=== PATIENT | female | born 1950 | race Caucasian/White ===

== ENCOUNTER → 2017-07-08 | Outpatient (CLI) | payer OTHER ==
[~2017-07-08] VITALS: Ht 162.6 cm; Wt 43.3 kg
[~2017-07-08] MED LIST: ADVAIR 250-501 EACH INH; ANALPRAM HC 128.4 GM RECTAL; B12INJ IM; CLARITIN10 MG PO; DIAZEPAM 5 MG5 M1 PO; DUONEB 2.5-0.5 M3 ML INH; GAVISCON 80-141 EACH PO; HYDROCODON-ACE1 EAC7 PO; KLOR-CON 1010 MEQ PO; LOMOTIL TABLET1 EACH PO; MAGOX 400400 MG PO; MUCINEX600 MG PO; NEURONTIN 400400 M1 PO; NITROGLYCERIN0.4 MG SUBLING; NYSTATIN100000 UNI PO; NYSTATIN15 G3 TOP; OCUVITE EYE +1 EACH PO; OXYBUTYNIN 5 MG5 M2 PO; PILOCARPINE HCL5 M1 PO; PROTONIX40 M1 PO; TOPIRAMATE25 MG PO
--- NOTE | ~2017-07-08 | HC ---
[facility] [place] [address] CONSULTATION Name: EDUIN HOLLIDAY Room #: REG [facility]#: [id number] Admission: 07/08/17 Attend Phys: Srini Crawford Discharge: Date of : 50 Report #: [id number] THIS REPORT FOR: //name// CC: Luke Quispe MD [facility] physician/PCP Srini Hawthorne DATE OF SERVICE: 07/08/2017 PROGRESS NOTE HISTORY OF PRESENT ILLNESS: The patient was recently seen in Infectious Disease consultation at [facility] in the Intensive Care Unit, where she was admitted with acute exacerbation of COPD, influenza A infection and MRSA UTI. She initially was in the Intensive Care Unit on broad-spectrum antibiotics, subsequently transferred to the floor and was discharged to the long term facility, I believe, on 06/28/2017. DRUG ALLERGIES: VANCOMYCIN, ERYTHROMYCIN, PENICILLIN AND MEROPENEM. MEDICATIONS: She is currently on Nystatin 100,000 units per mL, 5 mL t.i.d. by mouth; gabapentin 400 mg 4 times daily; Lomotil 2 tablets 4 times daily for diarrhea if needed; cyanocobalamin 1000 mcg IM monthly; diazepam 5 mg daily if needed; Atrovent and albuterol inhalation treatments 4 times daily; she is on linezolid 600 p.o. b.i.d., to be stopped on 07/13/2017; loratadine 10 mg by mouth daily; Gaviscon 80 mg tablets, 2 tablets 4 times daily if needed; magnesium 200 mg by mouth 2 times daily; sublingual nitroglycerin p.r.n. chest pain; oxybutynin 5 mg t.i.d. for overactive bladder; topiramate 25 mg daily for migraines; pilocarpine 5 mg by mouth 3 times daily; multivitamins and Protonix 40 mg by mouth daily for gastroesophageal reflux. She is also on p.r.n. hydrocodone, potassium supplementation and Advair Diskus (fluticasone and salmeterol) b.i.d. for cough. REVIEW OF SYSTEMS: The patient remains breathless and she is on 3 liters supplemental oxygen. She is visiting with Dr. Horne, public safety director, already for a month or thereabout. Currently, at the custodial, she has been moved to a private room because of the MRSA in urine. She, apparently, is eating. She has Port-A-Cath. She brings no new complaints to my attention. She talks incessantly. She came to the office with her mdlviemt-[id number]-hgy. PHYSICAL EXAMINATION: GENERAL: Chronically ill-appearing, older-looking than her stated age. VITAL SIGNS: Presenting with following vital signs: Height 5 feet 4 inches, weight 95.4 pounds, temperature 98.4, pulse 97 and BP 116/74. HEENT: Pupils reactive. Mouth edentulous. No thrush. NECK: Supple. [address] [address] CONSULTATION Name: EDUIN HOLLIDAY [id number] Admission: 07/08/17 Attend Phys: Srini Crawford Discharge: Date of : 50 Report #: [id number] CHEST: Right-sided Port-A-Cath, site looks fine. LUNGS: Rhonchi and crackles, left base posteriorly. HEART: S1, S2. No gallop or murmur. ABDOMEN: Ileostomy with minimal stool. Abdomen is soft. No masses or megaly. EXTREMITIES: No clubbing or cyanosis. ASSESSMENT: 1. Bronchiectasis with chronic infiltrates, left lung base. 2. History of Pseudomonas aeruginosa lower respiratory tract infection. 3. Recent influenza A. 4. Methicillin-resistant Staphylococcus aureus urinary tract infection. 5. Port-A-Cath. 6. Short bowel syndrome. SUGGESTIONS: The patient currently is stable. Will continue with her chronic medications as delineated by Dr. Quispe. Will finish the Zyvox orally on 07/13/2017. Will notify me if problems, particularly fevers. Schedule a followup visit in 4 months. <ELECTRONICALLY SIGNED> By: Srini Hawthorne MD 07/09/17 1236 [id number] Srini Hawthorne MD /nt
[2017-07-08 10:53] VITALS: BP 116/74
== END ==
LOC: SEN 06-10 15:21
DX: J44.1 Chronic obstructive pulmonary disease with (acute) exacerbation (principal); B95.8 Unspecified staphylococcus as the cause of diseases classified elsewhere; J09.X1 Influenza due to identified novel influenza A virus with pneumonia; K91.2 Postsurgical malabsorption, not elsewhere classified; Z88.0 Allergy status to penicillin

== ENCOUNTER → 2018-01-06 | Outpatient (CLI) | payer OTHER ==
[~2018-01-06] VITALS: Ht 162.6 cm; Wt 42.0 kg
--- NOTE | ~2018-01-06 | HC ---
[facility] [place] [address] CONSULTATION Name: EDUIN HOLLIDAY Room #: REG [facility]#: [id number] Admission: 01/06/18 Attend Phys: Srini Crawford Discharge: Date of : 50 Report #: [id number] THIS REPORT FOR: //name// CC: Daxa Quispe MD [facility] physician/PCP Srini Hawthorne DATE OF SERVICE: 01/06/2018 HISTORY OF PRESENT ILLNESS: The patient is a 67-year-old white woman known to me for almost 2 decades who apparently returns for followup of chronic bronchiectasis, COPD and recent infection with Pseudomonas aeruginosa. I have kept a track of this patient through frequent conversations with Dr. Luke Quispe who have informed me that the last sputum culture obtained on this patient has revealed Pseudomonas aeruginosa by now resistant to tobramycin and sensitive to ciprofloxacin. The patient did receive treatment with this last antibiotic while at the senior living. The patient comes today to the office with her son and [id number], very concerned people about mother's care. The colon had been residing at the local senior living where she is cared for by Dr. Luke Quispe. She has chronic cough and dyspnea on exertion and production of sputum on occasions. PAST MEDICAL HISTORY: Bronchiectasis as Pseudomonas aeruginosa lower respiratory tract infection. Previous episodes of Guillain [place]. She has a short bowel syndrome on account of multiple intraabdominal surgeries with ileostomy. Previous episode of a catheter related sepsis complicated by diskitis of the cervical, thoracic and lumbar spine, treated with amphotericin B for prolonged period of time. She also had recent hospitalization at [facility] with acute influenza pneumonia and urinary tract infection with MRSA. DRUG ALLERGIES: ERYTHROMYCIN, VANCOMYCIN, PENICILLIN AND QUESTION MEROPENEM. MEDICATIONS: The patient is on treatment with topical bacitracin, vitamin B12 1000 mcg IM monthly, Bentyl liquid, hyoscyamine, hydrocodone 5 acetaminophen 325 one tablet t.i.d. p.r.n., gabapentin 400 mg 4 times daily, Lomotil 2 tablets 4 times a day p.r.n. diarrhea, treatments with Atrovent and albuterol inhalation treatments, loratadine 10 mg daily, Gaviscon 80 mg chewable tablets 4 times daily, magnesium 200 mg twice daily, sublingual nitroglycerin, oxybutynin 5 mg t.i.d., topiramate 25 mg for migraine headaches. Pilocarpine 5 mg tablets by mouth 3 times a day for glaucoma, Protonix 40 mg daily, Mucinex 600 mg standard release twice daily, potassium chloride supplementation, oxygen 2-3 liters via nasal cannula. PHYSICAL EXAMINATION: GENERAL: This is a chronically ill-appearing woman, dyspneic with oxygen [address] [address] CONSULTATION Name: EDUIN HOLLIDAY [facility] [id number] Admission: 01/06/18 Attend Phys: Srini Crawford Discharge: Date of : 50 Report #: [id number] supplementation. VITAL SIGNS: Height 5 feet 4 inches, weight 92 pounds. Afebrile, BP 98/74, pulse 105, and O2 saturation 96% on 3 liters oxygen nasal cannula. HEENMT: Edentulous. Pupils reactive. NECK: Supple. LUNGS: Rhonchi, crackles both lung [place], anterior and posteriorly. HEART: S1, S2. No gallop or murmur. ABDOMEN: With ileostomy in place. EXTREMITIES: No pretibial edema. ASSESSMENT: 1. Severe chronic obstructive pulmonary disease with bronchiectasis. 2. History of infection - colonization with Pseudomonas aeruginosa sensitive to ciprofloxacin resistant to tobramycin, amikacin. 3. Short bowel syndrome. 4. Osteoporosis. 5. 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 SUGGESTIONS: At present, the patient not acting infected looking, consequently recommend no antibiotics. Obviously should she develop signs or symptoms that suggest an active ongoing infection, Dr. Quispe will make the first recommendation regarding antibiotic regimen. If she cannot be cared for at the senior living, obviously she must transfer to [facility] at once. I requested the patient visits with me again in 3 months and that the auizxawu-wv-pag secures a CD of the CT scan of the chest needs to be ordered by the pulmonary physician. <ELECTRONICALLY SIGNED> By: Srini Hawthorne MD 01/10/18 1022 [id number] Srini Hawthorne MD /nt
[2018-01-06 11:38] VITALS: BP 98/74
== END ==
LOC: SEN 08:39
DX: J47.9 Bronchiectasis, uncomplicated (principal); M81.0 Age-related osteoporosis without current pathological fracture; B96.5 Pseudomonas (aeruginosa) (mallei) (pseudomallei) as the cause of diseases classified elsewhere; K91.2 Postsurgical malabsorption, not elsewhere classified; Z86.61 Personal history of infections of the central nervous system